=== PATIENT | female | born 1970 | race Caucasian/White ===

== ENCOUNTER 2018-02-05 10:28 | Inpatient (IN) | payer MEDICAID ==
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
[2018-02-05 11:13] LABS: ABSOLUTE BASOPHILS # (AUTO) 0.1 10^3/uL (0.0-0.2); ABSOLUTE EOSINOPHILS # (AUTO) 0.2 10^3/uL (0.0-0.6); ABSOLUTE LYMPHOCYTES (AUTO) 1.4 10^3/uL (0.5-4.7); ABSOLUTE MONOCYTES (AUTO) 0.9 10^3/uL (0.1-1.4); ABSOLUTE NEUT (AUTO) 10.3 10^3/uL (1.7-8.2); BASOPHILS % (AUTO) 0.6 % (0-2); EOSINOPHILS % (AUTO) 1.7 % (0-6); HEMATOCRIT 35.5 % (36.0-47.0); HEMOGLOBIN 12.2 g/dL (12.0-15.5); MEAN CORPUSCULAR HEMOGLOBIN 30.1 pg (27.0-33.4); MEAN CORPUSCULAR HGB CONC 34.3 g/dL (32.0-36.0); MEAN CORPUSCULAR VOLUME 88 fl (80-97); MONOCYTES % (AUTO) 6.7 % (3-13); PLATELET COUNT 402 10^3/uL (150-450); RED BLOOD COUNT 4.04 10^6/uL (3.72-5.28); RED CELL DISTRIBUTION WIDTH 14.4 % (11.5-14.0); TOTAL CELLS COUNTED % (AUTO) 100 %; WHITE BLOOD COUNT 12.9 10^3/uL (4.0-10.5)
--- NOTE | 2018-02-05 11:22 | RADIOLOGY REPORT (SQ) ---
EXAM DESCRIPTION: CHEST SINGLE VIEW COMPLETED DATE/TIME: 02/05/2018 11:12 am REASON FOR STUDY: Difficulty breathing and shortness of breath COMPARISON: None. NUMBER OF VIEWS: One view. TECHNIQUE: Single frontal radiographic view of the chest acquired. LIMITATIONS: Body habitus. Poor inspiratory effort. FINDINGS: LUNGS AND PLEURA: Low lung volumes. No opacities, masses or pneumothorax. No pleural eff usion. MEDIASTINUM AND HILAR STRUCTURES: Appropriate for technique. HEART AND VASCULAR STRUCTURES: Appropriate for technique. BONES: No acute findings. HARDWARE: Sternotomy. 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 IMPRESSION: Hypoventilatory changes. TECHNICAL DOCUMENTATION: JOB ID: [id number] [employer]- All Rights Reserved Reading location - IP/workstation name: [email or web address]
[2018-02-05 11:32] LABS: ALANINE AMINOTRANSFERASE 25 U/L (9-52); ALBUMIN 3.7 g/dL (3.5-5.0); ALKALINE PHOSPHATASE 96 U/L (38-126); ANION GAP 8 (5-19); ASPARTATE AMINO TRANSFERASE 23 U/L (14-36); BILIRUBIN,DIRECT 0.7 mg/dL (0.0-0.4); BILIRUBIN,TOTAL 1.1 mg/dL (0.2-1.3); BLOOD UREA NITROGEN 15 mg/dL (7-20); CALCIUM 8.3 mg/dL (8.4-10.2); CARBON DIOXIDE 27 mmol/L (22-30); CHLORIDE 98 mmol/L (98-107); GLUCOSE 133 mg/dL (75-110); POTASSIUM 3.5 mmol/L (3.6-5.0); SODIUM 132.7 mmol/L (137-145); TOTAL PROTEIN 7.8 g/dL (6.3-8.2)
[2018-02-05 11:46] LABS: APPEARANCE,URINE TURBID; BILIRUBIN,URINE NEGATIVE (NEGATIVE); COLOR,URINE YELLOW; GLUCOSE, URINE NEGATIVE (NEGATIVE); KETONES,URINE NEGATIVE (NEGATIVE); LEUKOCYTE ESTERASE,URINE LARGE (NEGATIVE); NITRITE,URINE NEGATIVE (NEGATIVE); PROTEIN,URINE 30 mg/dL (NEGATIVE); URINE SPECIFIC GRAVITY 1.008
--- NOTE | 2018-02-05 12:15 | RADIOLOGY REPORT (SQ) ---
EXAM DESCRIPTION: KNEE LEFT 4 VIEW COMPLETED DATE/TIME: 02/05/2018 12:02 pm REASON FOR STUDY: Bruised appearing inferior left knee COMPARISON: None. NUMBER OF VIEWS: Four views. TECHNIQUE: AP, lateral, and both oblique radiographic images acquired of the left knee. LIMITATIONS: Body habitus. FINDINGS: MINERALIZATION: Osteopenia. BONES: Nondisplaced fracture distal femoral metaphysis. Mildly displaced transverse fracture of the patella. JOINT: Joint effusion. SOFT TISSUES: No foreign body. OTHER: No other significant finding. IMPRESSION: Fractures of the distal femur and patella. TECHNICAL DOCUMENTATION: JOB ID: [id number] [employer]- All Rights Reserved Reading location - IP/workstation name: [email or web address]
[2018-02-05] MEDS ORDERED: CEFTRIAXONE INJ 1000 MG VIAL IV ONE (12:45)
[2018-02-05] MEDS ORDERED: IPRATROPIUM/ALBUTEROL 0.5-2.5 MG/3 ML AMPUL NEB ONE ×2 (13:31→13:32)
--- NOTE | 2018-02-05 15:06 | RADIOLOGY REPORT (SQ) ---
EXAM DESCRIPTION: CTA CHEST COMPLETED DATE/TIME: 02/05/2018 2:54 pm REASON FOR STUDY: hypoxia, tachycardia COMPARISON: None. TECHNIQUE: CT scan of the chest performed using helical scanning technique with dynamic intravenous contrast injection. Images reviewed with lung, soft tissue and bone windows. Reconstructed coronal and sagittal MPR images reviewed. Additional 3 dimensional post-processing performed to develop Maximal Intensity Projection images (ME P). All images stored on PACS. All CT scanners at this facility use dose modulation, iterative reconstruction, and/or weight based d osing when appropriate to reduce radiation dose to as low as reasonably achievable (ALARA). [facility]: Dose Right [facility]: CareDose [facility]: Dose Right [facility]: Teradose 4D [facility]: [email or web address] CONTRAST TYPE AND DOSE: contrast/concentration: Isovue 350.00 mg/ml; Total Contrast Delivered: 64.0 ml; Total Saline Delivered: 87.0 ml Contrast bolus optimized for the pulmonary arteries. Not diagnostic for the aorta. RENAL FUNCTION: GFR > 60. RADIATION DOSE: CT Rad equipment meets quality standard of care and radiation dose reduction techniq ues were employed. CTDIvol: 16.5 - 22.0 mGy. DLP: 700 mGy-cm. . LIMITATIONS: Motion. FINDINGS: LUNGS AND PLEURA: Subsegmental patchy ground-glass attenuation in the upper lobes. Diffus e interlobular septal thickening. No effusions. AORTA AND GREAT VESSELS: No aneurysm. Contrast bolus not optimized for the aorta. HEART: No pericardial effusion. No significant coronary artery calcifications. PULMONARY ARTERIES: No emboli visualized in the main pulmonary arteries or the segmental branches. HILAR AND MEDIASTINAL STRUCTURES: No identified masses or abnormal nodes. HARDWARE: None in the chest. UPPER ABDOMEN: No significant findings. Limited exam. THYROID AND OTHER SOFT TISSUES: No masses. No adenopathy. BONES: No acute findings. Chronic changes in the spine. 3D MIPS: Confirm above findings. OTHER: No other significant finding. IMPRESSION: 1. No evidence of pulmonary embolus. 2. Ground-glass attenuation in the upper lobes could be inflammatory or infectious. Clinical correla tion is needed. COMMENT: Quality ID # [id number]: Final reports with documentation of one or more dose reduction techniques (e.g., Automated exposure control, adjustment of the mA and/or kV according to patient size, use of iterative reconstruction technique) TECHNICAL DOCUMENTATION: JOB ID: [id number] [employer]- All Rights Reserved Reading location - IP/workstation name: [email or web address]
[2018-02-05] MEDS ORDERED: ACETAMINOPHEN 325 MG TABLET PO PRN (15:51)
[2018-02-05] MEDS ORDERED: LEVALBUTEROL HCL NEB 1.25 MG/3 ML AMPUL NEB PRN (15:51)
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
[2018-02-05] MEDS: NORMAL SALINE 1000 ML 1,000 ML IV PRN (16:42)
--- NOTE | 2018-02-05 17:03 | EKG REPORT ---
SEVERITY:- OTHERWISE NORMAL ECG - SINUS TACHYCARDIA LEFT AXIS DEVIATION : Confirmed by: Giana Otoole MD 05-Feb-2018 17:02:18
[2018-02-05] MEDS: IPRATROPIUM/ALBUTEROL 0.5-2.5 MG/3 ML AMPUL NEB SCH (17:21)
[2018-02-05] MEDS: AZITHROMYCIN 500 MG in DEXTROSE 5%-WATER 250 ML IV SCH (18:12)
[2018-02-05] MEDS: GUAIFENESIN 600 MG TABLET.SA PO SCH (21:58)
[2018-02-05] MEDS: HEPARIN SOD (PORCINE) 5,000 UNIT/ML 1 ML SYRINGE SUBCUT SCH (21:58)
[2018-02-05] MEDS: FAMOTIDINE 20 MG TABLET PO SCH (21:58)
[2018-02-05] MEDS: FUROSEMIDE INJ/PF 20 MG/2 ML SDV IV SCH (21:59)
[2018-02-06] MEDS: NORMAL SALINE 1000 ML 1,000 ML IV PRN (05:24)
[2018-02-06] MEDS: HEPARIN SOD (PORCINE) 5,000 UNIT/ML 1 ML SYRINGE SUBCUT SCH ×3 (05:25→21:15)
[2018-02-06 07:52] LABS: ABSOLUTE BASOPHILS # (AUTO) 0.1 10^3/uL (0.0-0.2); ABSOLUTE EOSINOPHILS # (AUTO) 0.7 10^3/uL (0.0-0.6); ABSOLUTE LYMPHOCYTES (AUTO) 1.4 10^3/uL (0.5-4.7); ABSOLUTE NEUT (AUTO) 6.4 10^3/uL (1.7-8.2); BASOPHILS % (AUTO) 0.8 % (0-2); EOSINOPHILS % (AUTO) 7.4 % (0-6); HEMATOCRIT 31.6 % (36.0-47.0); HEMOGLOBIN 10.9 g/dL (12.0-15.5); MEAN CORPUSCULAR HEMOGLOBIN 30.3 pg (27.0-33.4); MEAN CORPUSCULAR HGB CONC 34.4 g/dL (32.0-36.0); MEAN CORPUSCULAR VOLUME 88 fl (80-97); MONOCYTES % (AUTO) 10.2 % (3-13); PLATELET COUNT 353 10^3/uL (150-450); RED BLOOD COUNT 3.59 10^6/uL (3.72-5.28); RED CELL DISTRIBUTION WIDTH 14.4 % (11.5-14.0); SEGMENTED NEUTROPHILS % (AUTO) 66.6 % (42-78); TOTAL CELLS COUNTED % (AUTO) 100 %; WHITE BLOOD COUNT 9.6 10^3/uL (4.0-10.5)
[2018-02-06 08:01] LABS: ANION GAP 6 (5-19); BLOOD UREA NITROGEN 6 mg/dL (7-20); CARBON DIOXIDE 31 mmol/L (22-30); CHLORIDE 102 mmol/L (98-107); CHOLESTEROL 159.21 mg/dL (0-200); GLUCOSE 113 mg/dL (75-110); SODIUM 139.3 mmol/L (137-145); TRIGLYCERIDES 117 mg/dL (<150)
[2018-02-06 08:12] LABS: DIRECT LDL 118 mg/dL (<100)
[2018-02-06] MEDS: IPRATROPIUM/ALBUTEROL 0.5-2.5 MG/3 ML AMPUL NEB SCH ×3 (08:15→16:42)
[2018-02-06] MEDS: CEFTRIAXONE SODIUM 1,000 MG in NORMAL SALINE 50 ML IV SCH (09:11)
[2018-02-06] MEDS: GUAIFENESIN 600 MG TABLET.SA PO SCH ×2 (09:11→22:19)
[2018-02-06] MEDS: FAMOTIDINE 20 MG TABLET PO SCH ×2 (09:11→21:16)
[2018-02-06] MEDS ORDERED: POTASSIUM CHLORIDE 20 MEQ/15 ML UDCUP PO ONE (09:30)
[2018-02-06] MEDS ORDERED: CEFTRIAXONE 1 GM/D5W RTU 50 ML IV SCH (10:00)
[2018-02-06] MEDS ORDERED: NA PHOS,M-B/NA PHOS,DI-BA (ADULT) 133 ML ENEMA PR PRN (11:17)
[2018-02-06] MEDS ORDERED: FUROSEMIDE INJ/PF 20 MG/2 ML SDV IV ONE (12:00)
[2018-02-06] MEDS: FUROSEMIDE INJ/PF 20 MG/2 ML SDV IV SCH ×2 (12:16→21:16)
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
--- NOTE | 2018-02-06 16:36 | Physician Advisory Note ---
Physician Advisor ProgressNote .: Pursuant to the plan for [facility], I have reviewed the medical record for this patient. Physician Advisor Statement: Nice documentation of paraplegia. Please consider documenting, if you agree: 1. "pneumonia, suspect gram-___ type" (need specific type of organism w/PNAs, not just "CAP") 2. Is decub stage 1, or 2, or ...? Or healed? 3. "Acute on chronic type CHF" (crackles, ... 4. ? "suspect Osteoporosis predisposing to fx.s" (xray documents osteopenia, fx.s occurred without signif trauma reported, ....) Thanks! CK
[2018-02-06] MEDS: AZITHROMYCIN 500 MG in DEXTROSE 5%-WATER 250 ML IV SCH (18:40)
[2018-02-06] MEDS: ASCORBIC ACID 500 MG TABLET PO SCH (18:45)
[2018-02-06] MEDS: POLYVINYL ALCOHOL 1.4% OPH SOLN 15 ML OU SCH (20:21)
[2018-02-06] MEDS: PHENOBARBITAL 97.2 MG TABLET PO SCH (21:16)
[2018-02-07] MEDS: IPRATROPIUM/ALBUTEROL 0.5-2.5 MG/3 ML AMPUL NEB SCH ×3 (00:03→16:09)
[2018-02-07] MEDS: HEPARIN SOD (PORCINE) 5,000 UNIT/ML 1 ML SYRINGE SUBCUT SCH ×2 (05:52→13:08)
[2018-02-07 06:18] LABS: HEMATOCRIT 32.6 % (36.0-47.0); HEMOGLOBIN 10.9 g/dL (12.0-15.5); MEAN CORPUSCULAR HEMOGLOBIN 29.8 pg (27.0-33.4); MEAN CORPUSCULAR HGB CONC 33.5 g/dL (32.0-36.0); MEAN CORPUSCULAR VOLUME 89 fl (80-97); PLATELET COUNT 359 10^3/uL (150-450); RED BLOOD COUNT 3.67 10^6/uL (3.72-5.28); RED CELL DISTRIBUTION WIDTH 14.7 % (11.5-14.0); WHITE BLOOD COUNT 10.1 10^3/uL (4.0-10.5)
[2018-02-07 06:37] LABS: ANION GAP 8 (5-19); BLOOD UREA NITROGEN 8 mg/dL (7-20); CALCIUM 8.1 mg/dL (8.4-10.2); CARBON DIOXIDE 31 mmol/L (22-30); CHLORIDE 101 mmol/L (98-107); GLUCOSE 97 mg/dL (75-110); POTASSIUM 3.9 mmol/L (3.6-5.0); SODIUM 139.6 mmol/L (137-145)
[2018-02-07] MEDS ORDERED: CYANOCOBALAMIN PO SCH (10:00)
[2018-02-07] MEDS ORDERED: [UNRECOGNIZED DRUG - OTHER] PO SCH (10:00)
[2018-02-07] MEDS: POLYVINYL ALCOHOL 1.4% OPH SOLN 15 ML OU SCH ×2 (10:15→17:28)
[2018-02-07] MEDS: GUAIFENESIN 600 MG TABLET.SA PO SCH (10:16)
[2018-02-07] MEDS: CYANOCOBALAMIN (VITAMIN B-12) 1,000 MCG TABLET PO SCH (10:16)
[2018-02-07] MEDS: FAMOTIDINE 20 MG TABLET PO SCH (10:16)
[2018-02-07] MEDS: CEFTRIAXONE SODIUM 1,000 MG in NORMAL SALINE 50 ML IV SCH (10:16)
[2018-02-07] MEDS: ASCORBIC ACID 500 MG TABLET PO SCH ×2 (10:17→17:30)
[2018-02-07] MEDS: FUROSEMIDE INJ/PF 20 MG/2 ML SDV IV SCH (10:27)
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
[2018-02-07] MEDS: AZITHROMYCIN 500 MG in DEXTROSE 5%-WATER 250 ML IV SCH (17:30)
[2018-02-07] MEDS ORDERED: NORMAL SALINE 1000 ML 1,000 ML IV ONE (22:55)
[2018-02-08] MEDS: IPRATROPIUM/ALBUTEROL 0.5-2.5 MG/3 ML AMPUL NEB SCH ×4 (00:31→23:42)
[2018-02-08] MEDS: HEPARIN SOD (PORCINE) 5,000 UNIT/ML 1 ML SYRINGE SUBCUT SCH ×3 (00:31→13:15)
[2018-02-08] MEDS: PHENOBARBITAL 97.2 MG TABLET PO SCH (00:31)
[2018-02-08] MEDS: FAMOTIDINE 20 MG TABLET PO SCH ×2 (00:31→10:49)
[2018-02-08] MEDS: GUAIFENESIN 600 MG TABLET.SA PO SCH ×2 (00:32→10:48)
[2018-02-08] MEDS: FUROSEMIDE INJ/PF 20 MG/2 ML SDV IV SCH (00:32)
[2018-02-08] MEDS ORDERED: CEFTRIAXONE SODIUM 1,000 MG in DEXTROSE 5%-WATER 50 ML IV SCH (10:00)
[2018-02-08] MEDS: POLYVINYL ALCOHOL 1.4% OPH SOLN 15 ML OU SCH ×2 (10:47→17:56)
[2018-02-08] MEDS: CALCIUM CARBONATE 250 MG/VITAMIN D3 125 UNIT TABLET PO SCH (10:48)
[2018-02-08] MEDS: CYANOCOBALAMIN (VITAMIN B-12) 1,000 MCG TABLET PO SCH (10:49)
[2018-02-08] MEDS: ASCORBIC ACID 500 MG TABLET PO SCH ×2 (10:49→17:48)
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
[2018-02-08] MEDS: AZITHROMYCIN 250 MG TABLET PO SCH (17:48)
[2018-02-09] MEDS: GUAIFENESIN 600 MG TABLET.SA PO SCH ×3 (00:10→21:30)
[2018-02-09] MEDS: HEPARIN SOD (PORCINE) 5,000 UNIT/ML 1 ML SYRINGE SUBCUT SCH ×4 (00:10→21:30)
[2018-02-09] MEDS: PHENOBARBITAL 97.2 MG TABLET PO SCH ×2 (00:10→21:30)
[2018-02-09] MEDS: FAMOTIDINE 20 MG TABLET PO SCH ×3 (00:10→21:30)
[2018-02-09] MEDS: NYSTATIN TOPICAL POWDER 15 GM TP PRN (00:11)
[2018-02-09] MEDS: CEFUROXIME 250 MG TABLET PO SCH ×3 (00:12→21:30)
[2018-02-09 05:48] LABS: HEMATOCRIT 31.7 % (36.0-47.0); HEMOGLOBIN 10.6 g/dL (12.0-15.5); MEAN CORPUSCULAR HEMOGLOBIN 30.2 pg (27.0-33.4); MEAN CORPUSCULAR HGB CONC 33.3 g/dL (32.0-36.0); MEAN CORPUSCULAR VOLUME 91 fl (80-97); PLATELET COUNT 411 10^3/uL (150-450); WHITE BLOOD COUNT 10.6 10^3/uL (4.0-10.5)
[2018-02-09 06:18] LABS: BLOOD UREA NITROGEN 9 mg/dL (7-20); CALCIUM 8.8 mg/dL (8.4-10.2); GLUCOSE 95 mg/dL (75-110); POTASSIUM 4.2 mmol/L (3.6-5.0)
[2018-02-09 06:24] LABS: ANION GAP 5 (5-19); CARBON DIOXIDE 34 mmol/L (22-30); CHLORIDE 101 mmol/L (98-107); SODIUM 140.1 mmol/L (137-145)
[2018-02-09] MEDS: IPRATROPIUM/ALBUTEROL 0.5-2.5 MG/3 ML AMPUL NEB SCH ×2 (08:50→21:02)
[2018-02-09] MEDS: CYANOCOBALAMIN (VITAMIN B-12) 1,000 MCG TABLET PO SCH (10:08)
[2018-02-09] MEDS: CALCIUM CARBONATE 250 MG/VITAMIN D3 125 UNIT TABLET PO SCH (10:08)
[2018-02-09] MEDS: ASCORBIC ACID 500 MG TABLET PO SCH ×2 (10:08→17:25)
[2018-02-09] MEDS: POLYVINYL ALCOHOL 1.4% OPH SOLN 15 ML OU SCH ×2 (10:27→17:23)
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
--- NOTE | 2018-02-09 14:50 | XCELERA REPORT ---
[address] [address] Transthoracic Echocardiogram Report Name: MICHELE CARNES Age: 47 yrs Gender: Female : 1970 Patient Status: Inpatient Patient Location: [address] [place] [address] Study Date: 02/07/2018 05:35 PM Height: 48 in Weight: 157 lb BSA: 1.4 m2 Procedure: A two-dimensional transthoracic echocardiogram with color flow and Doppler was performed. The study was technically difficult with many images being suboptimal in quality. The study was technically limited with all images being suboptimal in quality. Images were not obtained from all of the standard acoustic windows due to the limited scope of the study. Reason For Study: New CHF dx, elevated troponin Ordering Physician: YADI CASTELLANO Performed By: Dayana Madrid Interpretation Summary The left ventricle is normal in size. There is normal left ventricular wall thickness. No True apical 2 chamber views obtained.Hence cannot comment on the apical anterior , the basal anterior, the basal inferior and apical inferior mitchell.The mid anterior , the mid inferior and the rest of the LV mitchell contract normally. .Normal LVEF at 65% in the limited views LV diastolic function not assessed. There is no thrombus. The study was technically difficult with many images being suboptimal in quality. The right ventricle is grossly normal size. The left atrial size is normal. There is no evidence of mitral valve prolapse. There is no mitral valve stenosis. There is a mild amount of mitral regurgitation There is no aortic valve stenosis There is no LVOT obstruction. No aortic regurgitation is present. There is no tricuspid stenosis. There is a mild amount of tricuspid regurgitation There is mild pulmonary hypertension by echo RVSp is 33 to 38 mm of Hg , with RA mean of 5 to 10. There is no pericardial effusion. MMode/2D Measurements & Calculations RVDd: 2.6 cm LVIDd: 3.6 cm FS: 37.6 % Ao root diam: 2.6 cm IVSd: 1.1 cm LVIDs: 2.3 cm EDV(Teich): 56.1 ml Ao root area: 5.3 cm2 LVPWd: 0.90 cm ESV(Teich): 17.6 ml LA dimension: 2.4 cm EF(Teich): 68.6 % Doppler Measurements & Calculations MV E max david: MV P1/2t max david: Ao V2 max: LV V1 max P.0 cm/sec 84.7 cm/sec 122.5 cm/sec 3.2 mmHg MV A max david: MV P1/2t: 59.5 msec Ao max PG: LV V1 max: 79.5 cm/sec MVA(P1/2t): 3.7 cm2 6.0 mmHg 89.8 cm/sec MV E/A: 0.99 MV dec slope: 416.6 cm/sec2 MV dec time: 0.20 sec PA V2 max: PI end-d david: TR max david: MV P1/2t-pr_phl: 78.7 cm/sec 138.5 cm/sec 262.4 cm/sec 59.5 msec PA max PG: TR max P.5 mmHg 27.5 mmHg Left Ventricle The left ventricle is normal in size. There is normal left ventricular wall thickness. No True apical 2 chamber views obtained.Hence cannot comment on the apical anterior , the basal anterior, the basal inferior and apical inferior mitchell.The mid anterior , the mid inferior and the rest of the LV mitchell contract normally. .Normal LVEF at 65% in the limited views. LV diastolic function not assessed. There is no thrombus. Right Ventricle The right ventricle is grossly normal size. Atria Right atrium not well visualized secondary to technical limitations. The left atrial size is normal. Mitral Valve There is no evidence of mitral valve prolapse. There is no mitral valve stenosis. There is a mild amount of mitral regurgitation. Aortic Valve There is no aortic valvular vegetation. There is no aortic valve stenosis. There is no LVOT obstruction. No aortic regurgitation is present. Tricuspid Valve There is no tricuspid stenosis. There is a mild amount of tricuspid regurgitation. There is mild pulmonary hypertension by echo. RVSp is 33 to 38 mm of Hg , with RA mean of 5 to 10. Pulmonic Valve There is no pulmonic valvular stenosis. There is a trace amount of pulmonic regurgitation. Great Vessels The aortic root is not well visualized but is probably normal size. Effusions There is no pericardial effusion. : [place] CASTELLANOC > Giana Otoole
[2018-02-09] MEDS: PREDNISONE 20 MG TABLET PO SCH (15:27)
[2018-02-09] MEDS: AZITHROMYCIN 250 MG TABLET PO SCH (17:24)
[2018-02-10] MEDS: HEPARIN SOD (PORCINE) 5,000 UNIT/ML 1 ML SYRINGE SUBCUT SCH ×3 (06:16→21:29)
[2018-02-10] MEDS: IPRATROPIUM/ALBUTEROL 0.5-2.5 MG/3 ML AMPUL NEB SCH ×2 (08:50→19:48)
[2018-02-10] MEDS: PREDNISONE 20 MG TABLET PO SCH (10:13)
[2018-02-10] MEDS: GUAIFENESIN 600 MG TABLET.SA PO SCH ×2 (10:13→21:29)
[2018-02-10] MEDS: CYANOCOBALAMIN (VITAMIN B-12) 1,000 MCG TABLET PO SCH (10:13)
[2018-02-10] MEDS: FAMOTIDINE 20 MG TABLET PO SCH ×2 (10:13→21:29)
[2018-02-10] MEDS: ASCORBIC ACID 500 MG TABLET PO SCH ×2 (10:14→17:18)
[2018-02-10] MEDS: CALCIUM CARBONATE 250 MG/VITAMIN D3 125 UNIT TABLET PO SCH (10:14)
[2018-02-10] MEDS: NYSTATIN TOPICAL POWDER 15 GM TP PRN (10:14)
[2018-02-10] MEDS: CEFUROXIME 250 MG TABLET PO SCH ×2 (10:14→21:29)
[2018-02-10] MEDS: POLYVINYL ALCOHOL 1.4% OPH SOLN 15 ML OU SCH ×2 (10:16→17:18)
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
[2018-02-10] MEDS: AZITHROMYCIN 250 MG TABLET PO SCH (17:17)
[2018-02-10] MEDS: PHENOBARBITAL 97.2 MG TABLET PO SCH (21:29)
[2018-02-11] MEDS: HEPARIN SOD (PORCINE) 5,000 UNIT/ML 1 ML SYRINGE SUBCUT SCH ×2 (05:20→17:30)
[2018-02-11] MEDS: IPRATROPIUM/ALBUTEROL 0.5-2.5 MG/3 ML AMPUL NEB SCH (08:30)
[2018-02-11] MEDS: CYANOCOBALAMIN (VITAMIN B-12) 1,000 MCG TABLET PO SCH (10:08)
[2018-02-11] MEDS: GUAIFENESIN 600 MG TABLET.SA PO SCH (10:08)
[2018-02-11] MEDS: PREDNISONE 20 MG TABLET PO SCH (10:08)
[2018-02-11] MEDS: FAMOTIDINE 20 MG TABLET PO SCH (10:08)
[2018-02-11] MEDS: CEFUROXIME 250 MG TABLET PO SCH (10:09)
[2018-02-11] MEDS: CALCIUM CARBONATE 250 MG/VITAMIN D3 125 UNIT TABLET PO SCH (10:09)
[2018-02-11] MEDS: ASCORBIC ACID 500 MG TABLET PO SCH ×2 (10:10→18:09)
[2018-02-11] MEDS: POLYVINYL ALCOHOL 1.4% OPH SOLN 15 ML OU SCH ×2 (14:21→18:10)
[2018-02-11 16:32] VITALS: BP 106/60
[2018-02-11] MEDS: AZITHROMYCIN 250 MG TABLET PO SCH (18:09)
[2018-02-11] MEDS ORDERED: GUAIFENESIN 600 MG TABLET.SA PO SCH (22:00)
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
== END 2018-02-11 20:50 | disposition home health service (06) | DRG 189 ==
LOC: ER 10:28 → EH 13:52 → 4N 17:17
PROVIDERS: ADMIT Internal Medicine; ATTEND Internal Medicine
DX: J96.01 Acute respiratory failure with hypoxia (principal); J18.9 Pneumonia, unspecified organism; I21.A1 Myocardial infarction type 2; T83.511A Infection and inflammatory reaction due to indwelling urethral catheter, initial encounter; Q05.4 Unspecified spina bifida with hydrocephalus; G82.20 Paraplegia, unspecified; M80.052A Age-related osteoporosis with current pathological fracture, left femur, initial encounter for fracture; M80.80XA Other osteoporosis with current pathological fracture, unspecified site, initial encounter for fracture; N39.0 Urinary tract infection, site not specified; G40.909 Epilepsy, unspecified, not intractable, without status epilepticus; N31.8 Other neuromuscular dysfunction of bladder; I50.9 Heart failure, unspecified; D64.9 Anemia, unspecified; E87.6 Hypokalemia; M85.862 Other specified disorders of bone density and structure, left lower leg; L89.151 Pressure ulcer of sacral region, stage 1; B96.20 Unspecified Escherichia coli [E. coli] as the cause of diseases classified elsewhere
CPT/HCPCS: 36415; 71045; 71275; 80048; 80053; 80061; 81001; 83036; 83605; 83880; 84484; 85025; 85027; 87040; 87086; 87088; 87186; 90686; 93005; 93010; 93306; 94640; 94667; 94668; 94799; 96365; 99285; J0456; J0696; J1644; J1940; J3490; J7060; J7512; J7620